=== PATIENT | female | born 1990 | race Caucasian/White ===

== ENCOUNTER 2016-12-15 11:18 | Emergency (ER) | payer OTHER ==
[~2016-12-15] VITALS: Ht 172.7 cm; Wt 113.4 kg
--- NOTE | 2016-12-15 11:50 | NUR ---
heart tones HEART TONES OBTAINED 152, DOCTOR AR NOTIFIED.
--- NOTE | 2016-12-15 11:51 | NUR ---
BLOOD GLUCOSE BEDSIDE GLUCOSE 197, DOCTOR AR NOTIFIED.
[2016-12-15] MEDS ORDERED: DECADRON IH STA (11:52)
[2016-12-15] MEDS ORDERED: SOLU-MEDROL IM STA (11:52)
[2016-12-15] MEDS ORDERED: DUONEB 0.5 MG-3 MG/3 ML SOLN IH STA (11:52)
--- NOTE | 2016-12-15 11:59 | ER.PDOC ---
General Chief Complaint: General Complaint Stated Complaint: 33 WKS PREG / ASTHMA Time seen by MD: 11:54 Source: patient Exam Limitations: no limitations History of Present Illness Initial Comments Wheezing and difficulty breathing for 2 days Severity: moderate Associated Symptoms: shortness of breath, cough Prior symptoms/Treatment: Similar symptoms previous Allergies: Coded Allergies: No Known Allergies (Unverified , 12/15/16) Home Meds No Active Prescriptions or Reported Meds Past Medical History Medical History: asthma, other Surgical History: Social History Smoking: non-smoker Alcohol Use: none Drug Use: none Constitutional: no symptoms reported EENTM: no symptoms reported Respiratory: see HPI Cardiovascular: no symptoms reported Gastrointestinal: no symptoms reported Genitourinary: no symptoms reported Musculoskeletal: no symptoms reported All Other Systems: Reviewed and Negative Physical Exam General Appearance: alert, no distress Neck: nml inspection, non-tender Respiratory: chest non-tender, no respiratory distress, no accessory muscle use , wheezing (mild) Cardiovascular: Normal Peripheral Pulses, Regular Rate, Rhythm, No Edema, No Gallop, No JVD, No Murmur Abdomen: non-tender, other (gravid uterus) Skin: Normal Color, Warm/Dry Extremities: non-tender, nml ROM, no pedal edema NEURO/PSYCH: oriented x 3, CN's nml as tested, motor nml, sensation nml, mood/ affect nml Progress Progress Patient feeling better. FHR: 152 Consult/PCP Time Consult/PCP Called: 12:59 Consult/PCP: Dr. Marquez Reason/Comments: Asthma exacerbation, ok to D/C home Departure Time of Disposition: 12:59 Disposition: 01 HOME, SELF-CARE Impression: Primary Impression: Asthma exacerbation Condition: Improved Referrals: PCP,UNKNOWN (PCP) PRIMARY CARE PROVIDER Additional Instructions: Prednisone Continue with your Albuterol inhaler at home F/U with your OB Doctor in 2-3 days Scripts No Active Prescriptions or Reported Meds YVONNE JOYNER MD Dec 15, 2016 11:59
[2016-12-15] MEDS ORDERED: DUONEB 0.5 MG-3 MG/3 ML SOLN IH ONE (12:02)
[2016-12-15] MEDS ORDERED: DECADRON ONE (12:02)
[2016-12-15] MEDS ORDERED: SOLU-MEDROL ONE (12:30)
[2016-12-15 13:23] VITALS: BP 141/95
== END 2016-12-15 13:15 | disposition home or self-care (01) ==
LOC: ER 11:18
DX: J45.901 Unspecified asthma with (acute) exacerbation (principal)
CPT/HCPCS: 82948; 94640; 96372; 99283; J1100; J2930; J7620